=== PATIENT | female | born 1960 | race Caucasian/White ===

== ENCOUNTER 2019-05-16 18:14 | Emergency (ER) | payer BC ==
[2019-05-16] MEDS: ACETAMINOPHEN 325 MG TAB PO (19:24)
[2019-05-16 19:46] LABS: URINE PH (Dip) POC 6.5 (5.0-8.5)
[2019-05-16 19:46] LABS: URINE BLOOD (Dip) POC Negative (NEGATIVE); URINE GLUCOSE (Dip) POC Negative (NEGATIVE); URINE KETONES (Dip) POC Trace (NEGATIVE); URINE LEUKOCYTE EST (Dip) POC Trace (NEGATIVE); URINE NITRITE (Dip) POC Negative (NEGATIVE); URINE TOTAL PROTEIN POC Negative (NEGATIVE)
[2019-05-30 18:58] LABS: URINE BLOOD (Dip) POC Negative (NEGATIVE); URINE GLUCOSE (Dip) POC Negative (NEGATIVE); URINE KETONES (Dip) POC Trace (NEGATIVE); URINE LEUKOCYTE EST (Dip) POC Trace (NEGATIVE); URINE NITRITE (Dip) POC Negative (NEGATIVE); URINE TOTAL PROTEIN POC Negative (NEGATIVE)
[2019-05-30 18:58] LABS: URINE PH (Dip) POC 6.5 (5.0-8.5)
== END 2019-05-16 20:10 | disposition home or self-care (01) ==
LOC: FTE 18:14
DX: M54.5 Low back pain (principal)
CPT/HCPCS: 81003; 99282